=== PATIENT | female | born 1980 | race African-American/Black ===

== ENCOUNTER 2017-04-12 17:35 | Emergency (ER) | payer OTHER ==
--- NOTE | 2017-04-12 17:40 | PDOC ---
Rapid Medical Evaluation Chief Complaint: Pain, Acute Time Seen by Provider: 04/12/17 17:37 Medical Evaluation: 04/12/17 17:38 I have performed a brief in-person evaluation of this patient. The patient presents with a chief complaint of:lower abd pain, constipated one week. Pt states 8 weeks no vaginal bleeding Pertinent physical exam findings:suprapubic tenderness I have ordered the following:UA, urine The patient will proceed to the ED for further evaluation. 04/12/17 17:39
[2017-04-12 17:41] VITALS: BMI 19.3
[2017-04-12 18:36] LABS: URINE APPEARANCE SLCLOUDY; URINE BILIRUBIN NEGATIVE (NEGATIVE); URINE BLOOD NEGATIVE (NEGATIVE); URINE COLOR LTYELLOW; URINE GLUCOSE (UA) NEGATIVE (NEGATIVE); URINE KETONE NEGATIVE (NEGATIVE); URINE LEUK ESTERASE NEGATIVE (NEGATIVE); URINE NITRITE NEGATIVE (NEGATIVE); URINE PROTEIN NEGATIVE (NEGATIVE); URINE UROBILINOGEN NEGATIVE E.U./dl (0.2-1.0)
[2017-04-12] MEDS ORDERED: METOCLOPRAMIDE HCL INJECTION 10 MG/2 ML VIAL IVPB ONE (20:00)
[2017-04-12] MEDS ORDERED: METOCLOPRAMIDE HCL INJECTION 10 MG/2 ML VIAL ONE (20:09)
[2017-04-12 20:14] LABS: MCH 28.7 pg (25.7-33.7); MCHC 32.5 g/dl (32.0-36.0); MEAN CELL VOLUME 88.4 fl (80-96); MEAN PLT VOLUME 7.8 fl (7.5-11.1); PLATELET COUNT 315 K/MM3 (134-434); RDW 13.1 % (11.6-15.6); WHITE BLOOD COUNT 9.5 K/mm3 (4.0-10.0)
[2017-04-12 20:40] LABS: ALBUMIN 3.9 g/dl (3.4-5.0); ANION GAP 8 (8-16); CALCIUM 9.5 mg/dL (8.5-10.1); CO2 27 mmol/L (21-32); COCKROFT - GAULT 125.8595; CREATININE 0.5 mg/dL (0.55-1.02); GLUCOSE,RANDOM 80 mg/dL (74-106); SGOT/AST 11 U/L (15-37); SGPT/ALT 23 U/L (12-78)
[2017-04-12 20:42] LABS: ALK PHOS 59 U/L (45-117); BILIRUBIN,TOTAL 0.4 mg/dL (0.2-1.0); TOT PROT 7.1 g/dl (6.4-8.2)
--- NOTE | 2017-04-12 21:10 | PDOC ---
*Physical Exam - Vital Signs Last Vital Signs Temp Pulse Resp BP Pulse Ox 98.2 F 77 18 119/83 100 04/12/17 17:38 04/12/17 17:38 04/12/17 17:38 04/12/17 17:38 04/12/17 17:38 ED Treatment Course - LABORATORY CBC & Chemistry Diagram: 04/12/17 19:59 04/12/17 20:04 - ADDITIONAL ORDERS Additional order review: Laboratory Results 04/12/17 18:00 Urine Color Ltyellow Urine Appearance Slcloudy Urine pH 7.0 Urine Protein Negative Urine Glucose (UA) Negative Urine Ketones Negative Urine Blood Negative Urine Nitrite Negative Urine Bilirubin Negative Urine Urobilinogen Negative Ur Leukocyte Esterase Negative Urine HCG, Qual Positive - Medications Given in the ED: ED Medications Discontinued Medications Generic Name Dose Route Start Last Admin Trade Name Freq PRN Reason Stop Dose Admin Metoclopramide HCl 10 mg 04/12/17 20:00 04/12/17 20:21 Reglan Injection - IVPB 04/12/17 20:01 10 mg ONCE ONE Administration Medical Decision Making - Medical Decision Making 04/12/17 21:09 Pt seen by the Advanced Practice Provider under my direct supervision Ancillary studies reviewed I agree with plan as outlined by the Advanced Practice Provider LOU De La Cruz
--- NOTE | 2017-04-12 23:14 | PDOC ---
History of Present Illness - General Chief Complaint: Pain Stated Complaint: ABDOMINAL PAIN/8 WKS Time Seen by Provider: 04/12/17 17:37 History Source: Patient Exam Limitations: No Limitations - History of Present Illness Initial Comments: 04/12/17 23:08 36yo Female patient w/ PmHx: G6PD , 8 weeks presents to ED c/o abdominal pain. Patient report symptoms have been ongoing x 1 week. She reports last BM: Wednesday, but small. Patient states she visited with her POND SCALER and was prescribed colace but feels it is not working. She denies n/v/d outside of symptoms, vaginal bleeding, fever, back pain, diff breathing, or any other complaints at this time. Timing/Duration: 1 week Severity: mild Modifying Factors: improves with: medication Associated Symptoms: denies: denies symptoms, chest pain, cough, diaphoresis, fever/chills, headaches, loss of appetite, malaise, nausea/vomiting, rash, seizure, shortness of breath, syncope, weakness, other Past History - Travel Traveled outside of the country in the last 30 days: No Close contact w/someone who was outside of country & ill: No - Past Medical History Allergies/Adverse Reactions: Allergies Allergy/AdvReac Type Severity Reaction Status Date / Time aspirin Allergy Verified 04/12/17 17:37 iron Allergy Verified 04/12/17 17:37 orange Allergy Verified 04/12/17 17:37 Home Medications: Ambulatory Orders Albuterol 0.083% Nebulizer Malika [Ventolin 0.083% Nebulizer Soln -] 1 unit IH PRN 04/12/17 Polyethylene Glycol 3350 [Miralax (For Bowel Prep) -] 17 gm PO DAILY #1 bottle 04/12/17 Asthma: Yes GI Disorders: Yes (gallstones) Other medical history: g6pd defic - Psycho/Social/Smoking Cessation Hx Anxiety: No Suicidal Ideation: No Smoking History: Never smoked Have you smoked in the past 12 months: No Information on smoking cessation initiated: No Hx Alcohol Use: No Drug/Substance Use Hx: No Substance Use Type: None Review of Systems - Review of Systems Able to Perform ROS?: Yes Is the patient limited Frisian proficient: No Constitutional: No: Chills, Fever Respiratory: No: Shortness of Breath, Wheezing Cardiac (ROS): No: Chest Pain, Lightheadedness, Palpitations, Chest Tightness ABD/GI: Yes: Constipated, Abdominal cramping (Generalized), Other (8 Weeks .). No: Diarrhea, Nausea, Poor Appetite, Poor Fluid Intake, Vomiting : No: Burning, Dysuria, Hematuria Musculoskeletal: No: Back Pain Integumentary: No: Bruising, Rash Neurological: No: Headache, Seizure, Ataxia, Dizziness All Other Systems: Reviewed and Negative *Physical Exam - Vital Signs Last Vital Signs Temp Pulse Resp BP Pulse Ox 98.2 F 77 18 119/83 100 04/12/17 17:38 04/12/17 17:38 04/12/17 17:38 04/12/17 17:38 04/12/17 17:38 - Physical Exam General Appearance: Yes: Nourished, Appropriately Dressed. No: Apparent Distress, Mild Distress, Moderate Distress, Severe Distress Neck: positive: Trachea midline, Supple. negative: Stridor, Lymphadenopathy (R) , Lymphadenopathy (L) Respiratory/Chest: positive: Lungs Clear, Normal Breath Sounds. negative: Chest Tender, Respiratory Distress, Accessory Muscle Use, Labored Respiration, Rapid RR, Stridor, Wheezing Cardiovascular: positive: Regular Rhythm, Regular Rate Gastrointestinal/Abdominal: positive: Normal Bowel Sounds, Soft, Protuberent (8 weeks ). negative: Distended, Guarding, Rebound, Tenderness Musculoskeletal: positive: Normal Inspection. negative: CVA Tenderness Extremity: positive: Normal Capillary Refill, Normal Inspection, Normal Range of Motion. negative: Pedal Edema, Swelling, Calf Tenderness, Erythema, Inflammation Integumentary: positive: Normal Color, Dry, Warm Neurologic: positive: relay adjuster II-XII NML intact, Fully Oriented, Alert, Normal Mood/ Affect, Normal Response, Motor Strength 5/5 ED Treatment Course - LABORATORY CBC & Chemistry Diagram: 04/12/17 19:59 04/12/17 20:04 - ADDITIONAL ORDERS Additional order review: Laboratory Results 04/12/17 04/12/17 04/12/17 20:04 20:04 19:59 Sodium 137 Potassium 4.4 Chloride 102 Carbon Dioxide 27 Anion Gap 8 BUN 9 Creatinine 0.5 L Creat Clearance w eGFR > 60 Random Glucose 80 Calcium 9.5 Total Bilirubin 0.4 AST 11 L ALT 23 Alkaline Phosphatase 59 Total Protein 7.1 Albumin 3.9 Beta HCG, Quant 101143.6 Urine Color Urine Appearance Urine pH Urine Protein Urine Glucose (UA) Urine Ketones Urine Blood Urine Nitrite Urine Bilirubin Urine Urobilinogen Ur Leukocyte Esterase Urine HCG, Qual Blood Type O POSITIVE Antibody Screen Negative 04/12/17 18:00 Sodium Potassium Chloride Carbon Dioxide Anion Gap BUN Creatinine Creat Clearance w eGFR Random Glucose Calcium Total Bilirubin AST ALT Alkaline Phosphatase Total Protein Albumin Beta HCG, Quant Urine Color Ltyellow Urine Appearance Slcloudy Urine pH 7.0 Urine Protein Negative Urine Glucose (UA) Negative Urine Ketones Negative Urine Blood Negative Urine Nitrite Negative Urine Bilirubin Negative Urine Urobilinogen Negative Ur Leukocyte Esterase Negative Urine HCG, Qual Positive Blood Type Antibody Screen 04/12/17 19:59 RBC 3.91 MCV 88.4 MCHC 32.5 RDW 13.1 MPV 7.8 - RADIOLOGY Radiology Studies Ordered: Category Date Time Status <14WKS US [US] Stat Ultrasound 04/12/17 19:44 Taken - Medications Given in the ED: ED Medications Discontinued Medications Generic Name Dose Route Start Last Admin Trade Name Piyush PRN Reason Stop Dose Admin Metoclopramide HCl 10 mg 04/12/17 20:00 04/12/17 20:21 Reglan Injection - IVPB 04/12/17 20:01 10 mg ONCE ONE Administration *DC/Admit/Observation/Transfer Diagnosis at time of Disposition: Constipation Qualifiers: Constipation type: other constipation type Qualified Code(s): K59.09 - Other constipation - Discharge Dispostion Disposition: HOME Condition at time of disposition: Improved Admit: No - Prescriptions Prescriptions: Polyethylene Glycol 3350 [Miralax (For Bowel Prep) -] 17 gm PO DAILY #1 bottle - Patient Instructions Printed Discharge Instructions: DI for Constipation, Increased Dietary Fiber May Improve Constipation Conditions With Pelvic Terrence Additional Instructions: FOLLOW UP WITH YOUR POND SCALER THIS WEEK FOR FURTHER EVALUATION. TAKE MEDICATION PRESCRIBED. INCREASE YOUR FLUID INTAKE AND DAILY CALORIES. RETURN IF SYMPTOMS WORSEN OR ANY CONCERNS FOR FURTHER EVALUATION. Print Language: SERBIAN - Post Discharge Activity Work/School Note: Back to Work
[2017-04-12 23:47] VITALS: BP 113/62; PULSE 70; TEMP 98.4
== END 2017-04-12 23:49 | disposition home or self-care (01) ==
LOC: JER 17:35
PROC: 3E033GC Introduction of Other Therapeutic Substance into Peripheral Vein, Percutaneous Approach (ICD-10-PCS; principal; 2017-04-12)
DX: O26.891 Other specified pregnancy related conditions, first trimester (principal); K59.09 Other constipation; Z3A.01 Less than 8 weeks gestation of pregnancy
CPT/HCPCS: 36415; 76801-TC; 80053; 81003; 84702; 84703; 85027; 86850; 86900; 86901; 96374; 99284-25

== ENCOUNTER 2017-09-21 18:03 | Emergency (ER) | payer OTHER ==
[2017-09-21 18:27] VITALS: BMI 26.1
--- NOTE | 2017-09-21 18:30 | PDOC ---
Rapid Medical Evaluation Chief Complaint: Headache Time Seen by Provider: 09/21/17 18:22 Medical Evaluation: Allergies Allergy/AdvReac Type Severity Reaction Status Date / Time aspirin Allergy Verified 09/21/17 18:23 iron Allergy Verified 09/21/17 18:23 orange Allergy Verified 09/21/17 18:23 Vital Signs Temp Pulse Resp BP Pulse Ox 98.3 F 74 16 122/70 99 09/21/17 18:24 09/21/17 18:24 09/21/17 18:24 09/21/17 18:24 09/21/17 18:24 09/21/17 18:28 I have performed a brief in-person evaluation of this patient. The patient presents with a chief complaint of: lower abd pain and headache, 31 weeks , hx SCD Pertinent physical exam findings: vss. I have ordered the following: cbc, comp., ua, ucx, tylenol, ivf The patient will proceed to the ED for further evaluation.
[2017-09-21] MEDS ORDERED: ACETAMINOPHEN 500 MG TABLET (FP) PO ONE (18:31)
[2017-09-21] MEDS ORDERED: SODIUM CHLORIDE 1,000 ML IV STA (18:31)
[2017-09-21 18:47] LABS: BASOPHIL 0.4 % (0-2.0); EOSINOPHIL 1.2 % (0-4.5); MCH 28.7 pg (25.7-33.7); MCHC 32.7 g/dl (32.0-36.0); MEAN CELL VOLUME 87.9 fl (80-96); MEAN PLT VOLUME 7.6 fl (7.5-11.1); NEUTROPHILS 80.4 % (42.8-82.8); PLATELET COUNT 352 K/MM3 (134-434); RDW 13.9 % (11.6-15.6); WHITE BLOOD COUNT 11.8 K/mm3 (4.0-10.0)
[2017-09-21 18:48] LABS: URINE APPEARANCE CLOUDY; URINE BILIRUBIN NEGATIVE (NEGATIVE); URINE BLOOD NEGATIVE (NEGATIVE); URINE COLOR YELLOW; URINE GLUCOSE (UA) NEGATIVE (NEGATIVE); URINE KETONE NEGATIVE (NEGATIVE); URINE NITRITE NEGATIVE (NEGATIVE); URINE PROTEIN NEGATIVE (NEGATIVE); URINE UROBILINOGEN NEGATIVE mg/dL (0.2-1.0)
[2017-09-21] MEDS ORDERED: ACETAMINOPHEN 325 MG TABLET (FP) ONE (19:08)
[2017-09-21 19:24] LABS: ALBUMIN 2.7 g/dl (3.4-5.0); ALK PHOS 113 U/L (45-117); ANION GAP 8 (8-16); BILIRUBIN,TOTAL 0.2 mg/dL (0.2-1.0); CALCIUM 8.5 mg/dL (8.5-10.1); CO2 24 mmol/L (21-32); CREATININE 0.5 mg/dL (0.55-1.02); GLUCOSE,RANDOM 80 mg/dL (74-106); SGOT/AST 15 U/L (15-37); SGPT/ALT 34 U/L (12-78); TOT PROT 6.3 g/dl (6.4-8.2)
--- NOTE | 2017-09-21 20:25 | PDOC ---
History of Present Illness - General Chief Complaint: Headache Stated Complaint: HEADACHE Time Seen by Provider: 09/21/17 18:22 - History of Present Illness Initial Comments: 09/21/17 20:17 Past History - Past History Allergies/Adverse Reactions: Allergies aspirin Allergy (Verified 09/21/17 18:23) iron Allergy (Verified 09/21/17 18:23) orange Allergy (Verified 09/21/17 18:23) Home Medications: Ambulatory Orders Albuterol 0.083% Nebulizer Malika [Ventolin 0.083% Nebulizer Soln -] 1 unit IH PRN 04/12/17 Polyethylene Glycol 3350 [Miralax (For Bowel Prep) -] 17 gm PO DAILY #1 bottle 04/12/17 Immunization Status Up to Date: Yes Tetanus Status: Unknown - Social History Smoking Status: Never smoked *Physical Exam - Vital Signs Last Vital Signs Temp Pulse Resp BP Pulse Ox 98.3 F 74 16 122/70 99 09/21/17 18:24 09/21/17 18:24 09/21/17 18:24 09/21/17 18:24 09/21/17 18:24 ED Treatment Course - LABORATORY CBC & Chemistry Diagram: 09/21/17 18:40 09/21/17 18:40 - ADDITIONAL ORDERS Additional order review: Laboratory Results 09/21/17 18:40 Urine Color Yellow Urine Appearance Cloudy Urine pH 7.0 Ur Specific [place] 1.014 Urine Protein Negative Urine Glucose (UA) Negative Urine Ketones Negative Urine Blood Negative Urine Nitrite Negative Urine Bilirubin Negative Urine Urobilinogen Negative 09/21/17 18:40 RBC 3.42 L MCV 87.9 MCHC 32.7 RDW 13.9 MPV 7.6 Neutrophils % 80.4 Lymphocytes % 10.5 Monocytes % 7.5 Eosinophils % 1.2 Basophils % 0.4
--- NOTE | 2017-09-21 20:53 | PDOC ---
History of Present Illness - General Chief Complaint: Headache Stated Complaint: HEADACHE Time Seen by Provider: 09/21/17 18:22 - History of Present Illness Initial Comments: 09/21/17 20:52 CHIEF COMPLAINT: headache in HISTORY OF PRESENT ILLNESS: 37 yo F 31 wk with hx of sickle cell anemia, G6PD deficiency, fibroids, and asthma presents to ED with headache x 3 days with left sided blurry vision. Patient reports that she was recently transferred from her OBGYN to [facility] for high risk . Patient also reports feeling "like something wants to come out for the past month" but reports that she was placed on bedrest per OB "since February." PAST MEDICAL HISTORY: as per HPI FAMILY HISTORY: Denies SOCIAL HISTORY: Denies tobacco, alcohol, illicit drug use. SURGICAL HISTORY: Denies ALLERGIES: aspirin, iron, orange REVIEW OF SYSTEMS General/Constitutional: Denies fever or chills. Denies weakness, weight change. HEENT: Blurry vision to L eye. Denies ear pain or discharge. Denies sore throat. Cardiovascular: Denies chest pain or shortness of breath. Respiratory: Denies cough, wheezing, or hemoptysis. Gastrointestinal: Denies nausea, vomiting, diarrhea or constipation. Denies rectal bleeding. Genitourinary: Denies dysuria, frequency, or change in urination. Musculoskeletal: Denies joint or muscle swelling or pain. Denies neck or back pain. Skin and breasts: Denies rash or easy bruising. Neurologic: Headache x 3 days. Denies vertigo, loss of consciousness, or loss of sensation. PHYSICAL EXAM General Appearance: Well-appearing, appropriately dressed. No apparent distress. HEENT: EOMI, PERRLA, normal ENT inspection, normal voice, TMs normal, pharynx normal. No conjunctival pallor. No photophobia, scleral icterus. Neck: Supple. Trachea midline. No tenderness, rigidity, carotid bruit, stridor , lymphadenopathy, or thyromegaly. Respiratory/Chest: Lungs CTAB. No shortness of breath, chest tenderness, respiratory distress, accessory muscle use. No crackles, rales, rhonchi, stridor , wheezing, dullness Cardiovascular: RRR. S1, S2. No JVD, murmur, bradycardia, tachycardia. Vascular Pulses: Dorsalis-Pedis (R): 2+, Dorsalis-Pedis (L): 2+ Gastrointestinal/Abdominal: Normal bowel sounds. Abdomen soft, non-distended. No tenderness or rebound tenderness. No organomegaly, pulsatile mass, guarding , hernia, hepatomegaly, splenomegaly. Lymphatic: No adenopathy, tenderness. Musculoskeletal/Extremities: Normal inspection. FROM of all extremities, normal capillary refill. Pelvis Stable. No CVA tenderness. No tenderness to extremities, pedal edema, swelling, erythema or deformity. Integumentary: Appropriate color, dry, warm. No cyanosis, erythema, jaundice or rash Neurologic: it telecom technician II-XII intact. Fully oriented, alert. Appropriate mood/affect. Motor strength 5/5. No appreciable EOM palsy, facial droop or sensory deficit. Past History - Past Medical History Allergies/Adverse Reactions: Allergies Allergy/AdvReac Type Severity Reaction Status Date / Time aspirin Allergy Verified 09/21/17 18:23 iron Allergy Verified 09/21/17 18:23 orange Allergy Verified 09/21/17 18:23 Home Medications: Ambulatory Orders Multivit,Calc,Mins/Iron/Folic [Therapeutic-M Tablet] 1 each PO DAILY 09/21/17 Asthma: Yes CVA: No COPD: No GI Disorders: Yes (gallstones) Other medical history: FIBROIDS - Immunization History Immunization Up to Date: Yes - Suicide/Smoking/Psychosocial Hx Smoking History: Never smoked Have you smoked in the past 12 months: No Information on smoking cessation initiated: No Hx Alcohol Use: No Drug/Substance Use Hx: No Substance Use Type: None *Physical Exam - Vital Signs Last Vital Signs Temp Pulse Resp BP Pulse Ox 98.3 F 74 16 122/70 99 09/21/17 18:24 09/21/17 18:24 09/21/17 18:24 09/21/17 18:24 09/21/17 18:24 ED Treatment Course - LABORATORY CBC & Chemistry Diagram: 09/21/17 18:40 09/21/17 18:40 - ADDITIONAL ORDERS Additional order review: Laboratory Results 09/21/17 09/21/17 18:40 18:40 Sodium 138 Potassium 3.7 Chloride 106 Carbon Dioxide 24 Anion Gap 8 BUN 7 D Creatinine 0.5 L Creat Clearance w eGFR > 60 Random Glucose 80 Calcium 8.5 Total Bilirubin 0.2 D AST 15 D ALT 34 D Alkaline Phosphatase 113 D Total Protein 6.3 L Albumin 2.7 L D Lipase 169 Urine Color Yellow Urine Appearance Cloudy Urine pH 7.0 Ur Specific [place] 1.014 Urine Protein Negative Urine Glucose (UA) Negative Urine Ketones Negative Urine Blood Negative Urine Nitrite Negative Urine Bilirubin Negative Urine Urobilinogen Negative 09/21/17 18:40 RBC 3.42 L MCV 87.9 MCHC 32.7 RDW 13.9 MPV 7.6 Neutrophils % 80.4 Lymphocytes % 10.5 Monocytes % 7.5 Eosinophils % 1.2 Basophils % 0.4 Medical Decision Making - Medical Decision Making 09/21/17 20:52 37 yo F 31 wk with hx of sickle cell anemia, G6PD deficiency, fibroids, and asthma presents to ED with headache x 3 days with left sided blurry vision. -VSS, no elevated BP -CBC, CMP, UA, UCx, Upreg -IVF, Tylenol -TV US 09/21/17 22:49 Labs unremarkable. Patient reassessed after administration of medications. Patient reports that headache has resolved and even vision seems better now that the pain has gone away. Patient is to be sent to L&D for further evaluation. *DC/Admit/Observation/Transfer Diagnosis at time of Disposition: Headache Qualifiers: Headache type: unspecified Headache chronicity pattern: unspecified pattern Intractability: not intractable Qualified Code(s): R51 - Headache - Referrals - Patient Instructions - Post Discharge Activity
[2017-09-21] MEDS ORDERED: ACETAMINOPHEN 1000 MG/100 ML VIAL (NON FORMULARY) IVPB ONE (21:06)
[2017-09-21] MEDS ORDERED: ACETAMINOPHEN INJECTION 100 ML IVPB ONE (21:11)
[2017-09-21 21:37] LABS: URINE LEUK ESTERASE Negative (NEGATIVE)
[2017-09-22 02:30] VITALS: PULSE 80; TEMP 97.6
[2017-09-22 02:32] VITALS: BP 121/78
== END 2017-09-22 02:25 | disposition home or self-care (01) ==
LOC: JER 18:03
PROC: 3E0337Z Introduction of Electrolytic and Water Balance Substance into Peripheral Vein, Percutaneous Approach (ICD-10-PCS; principal; 2017-09-21)
PROC: 3E033NZ Introduction of Analgesics, Hypnotics, Sedatives into Peripheral Vein, Percutaneous Approach (ICD-10-PCS; 2017-09-21)
DX: O26.893 Other specified pregnancy related conditions, third trimester (principal); R51 Headache; O34.13 Maternal care for benign tumor of corpus uteri, third trimester; D25.9 Leiomyoma of uterus, unspecified; O99.013 Anemia complicating pregnancy, third trimester; D57.1 Sickle-cell disease without crisis; Z3A.31 31 weeks gestation of pregnancy
CPT/HCPCS: 36415; 76801-TC; 80053; 81003; 83690; 85025; 87086; 96361; 96374; 99282-25

== ENCOUNTER 2020-08-22 13:25 | Emergency (ER) | payer OTHER ==
[2020-08-22] MEDS ORDERED: ONDANSETRON 4 MG/2 ML VIAL IVPUSH ONE (13:28)
[2020-08-22] MEDS ORDERED: morphine CARPU-JECT 4 MG/1 ML DISP.SYRIN IVPUSH ONE (13:28)
[2020-08-22] MEDS ORDERED: SODIUM CHLORIDE 1,000 ML IV STA (13:28)
[2020-08-22 13:30] VITALS: BMI 20.5
--- NOTE | 2020-08-22 13:53 | PDOC ---
History of Present Illness - General Chief Complaint: Pain, Acute Stated Complaint: EXTREME ABD PAIN Time Seen by Provider: 08/22/20 13:28 History Source: Patient Exam Limitations: No Limitations - History of Present Illness Travel History: No Initial Comments: 08/22/20 13:45 HISTORY OF PRESENT ILLNESS: 39-year-old woman who denies medical history [facility] emergency [facility] for evaluation of right lower quadrant pain over the past 3 days. Patient still rates the pain 8/10 and reports the pain started below her umbilicus 3 days ago and now has migrated to the right lower quadrant. She is unable to describe the pain other than it "hurts a lot." Patient states she was seen at an urgent care center and told she does not have urinary infection was recommended she come to the emergency department for evaluation of her pain. Patient denies any nausea, vomiting, dysuria, hematuria, rectal bleeding, vaginal bleeding or vaginal discharge. Patient reports she is not having any intercourse for the past 6 months. She denies fevers, chills. No recent travel or sick contacts. PAST MEDICAL HISTORY: Denies past medical history SURGICAL HISTORY: Denies ALLERGIES: Aspirin, iron, oranges REVIEW OF SYSTEMS General/Constitutional: Denies fever or chills. Denies weakness, weight change. HEENT: Denies change in vision. Denies ear pain or discharge. Denies sore throat. Cardiovascular: Denies chest pain or shortness of breath. Respiratory: Denies cough, wheezing, or hemoptysis. Gastrointestinal: See HPI Genitourinary: Denies dysuria, frequency, or change in urination. Musculoskeletal: Denies joint or muscle swelling or pain. Denies neck or back pain. Skin and breasts: Denies rash or easy bruising. Neurologic: Denies headache, vertigo, loss of consciousness, or loss of sensation. Psychiatric: Denies depression or anxiety. Endocrine: Denies increased thirst. Denies abnormal weight change. Hematologic/Lymphatic: Denies anemia, easy bleeding, or history of blood clots. Allergic/Immunologic: Denies hives or skin allergy. Denies latex allergy. PHYSICAL EXAM General Appearance: Well-appearing, appropriately dressed. No apparent distr ess, no intoxication. Respiratory/Chest: Lungs CTAB. No shortness of breath, chest tenderness, resp iratory distress, accessory muscle use. No crackles, rales, rhonchi, stridor, wheezing, dullness Cardiovascular: RRR. S1, S2. No JVD, murmur, bradycardia, tachycardia. Vascular Pulses: Dorsalis-Pedis (R): 2+, Dorsalis-Pedis (L): 2+ Gastrointestinal/Abdominal: Normal bowel sounds. Abdomen soft, non-distended. Right lower quadrant tenderness without rebound tenderness. Negative psoas, obturator and Rovsing signs. No organomegaly, pulsatile mass, hernia, hepatomegaly, splenomegaly. Past History - Medical History Allergies/Adverse Reactions: Allergies Allergy/AdvReac Type Severity Reaction Status Date / Time aspirin Allergy Verified 08/22/20 13:27 iron Allergy Verified 08/22/20 13: orange Allergy Verified 08/22/20 13:27 Home Medications: Ambulatory Orders Folic Acid 1 mg PO DAILY 09/22/17 Asthma: Yes CVA: No COPD: No GI Disorders: Yes (gallstones) - Reproductive History Is Patient Now?: No - Immunization History Immunization Up to Date: Yes - Psycho-Social/Smoking History Smoking History: Never smoked Have you smoked in the past 12 months: No - Substance Abuse Hx (Audit-C & DAST Scrn) How often the patient has a drink containing alcohol: Never Score: In Men: 4 or > Positive; In Women: 3 or > Positive: 0 Screen Result (Pos requires Nsg. Audit-10AR): Negative *Physical Exam - Vital Signs Last Vital Signs Temp Pulse Resp BP Pulse Ox 98.6 F 70 18 131/66 99 08/22/20 13:28 08/22/20 13:28 08/22/20 13:28 08/22/20 13:28 08/22/20 13:28 ED Treatment Course - LABORATORY CBC & Chemistry Diagram: 08/22/20 14:40 08/22/20 14:40 - RADIOLOGY Radiology Studies Ordered: Category Date Time Status ABDOMEN & PELVIS CT WITH CONTR [CT] Stat CT Scan 08/22/20 13:28 Ordered Medical Decision Making - Medical Decision Making 08/22/20 13:49 A/P: 39-year-old female with right lower quadrant pain for 3 days which initially started below the umbilicus and now with migration to the right lower quadrant Physical exam concerning for appendicitis. Differential diagnosis includes but is not limited to-colitis, obstruction, perforation, gas, UTI, constipation Labs including lipase Urinalysis, urine , urine culture, urine GC CT of the abdomen and pelvis with IV contrast Normal saline 1 L IV bolus Morphine 4 mg IV Zofran 4 mg IV Reassess 08/22/20 17:16 Case has been discussed with Dr. Dow of radiology who states patient has multiple findings on her CT including bilateral renal calculi which are nonobstructing the largest being 0.3 cm, fatty liver with a 2.3 cm attenuation present likely a hemangioma, right corpus luteum cyst, pulmonary nodule and debris in the endometrial canal. CT is negative for appendicitis. Transvaginal ultrasound. Reassess 08/22/20 20:24 Laboratory Tests 08/22/20 08/22/20 08/22/20 14:21 14:40 14:40 WBC 5.6 RBC 4.16 Hgb 12.1 Hct 36.9 D MCV 88.7 MCH 29.1 MCHC 32.7 RDW 13.1 Plt Count 265 D MPV 8.2 Absolute Neuts (auto) 2.6 Neutrophils % 46.9 D Lymphocytes % 40.6 H D Monocytes % 8.9 Eosinophils % 2.5 D Basophils % 1.1 Nucleated RBC % 0 Sodium 141 Potassium 5.4 H Chloride 111 H Carbon Dioxide 28 Anion Gap 2 L BUN 12.2 Creatinine 0.6 Est GFR (CKD-EPI)AfAm 133.07 Est GFR (CKD-EPI)NonAf 114.82 Random Glucose 82 Calcium 9.0 Total Bilirubin 0.5 AST 30 ALT 18 Alkaline Phosphatase 64 Total Protein 7.1 Albumin 3.8 Lipase 66 L Urine Color Yellow Urine Appearance Clear Urine pH 7.5 Ur Specific [place] 1.026 Urine Protein Negative Urine Glucose (UA) Negative Urine Ketones Trace H Urine Blood Negative Urine Nitrite Negative Urine Bilirubin Negative Urine Urobilinogen 2.0 H Ur Leukocyte Esterase Negative Urine HCG, Qual C. trachomatis (JOSE LUIS) N. gonorrhoeae (JOSE LUIS) 08/22/20 08/22/20 14:45 15:00 WBC RBC Hgb Hct MCV MCH MCHC RDW Plt Count MPV Absolute Neuts (auto) Neutrophils % Lymphocytes % Monocytes % Eosinophils % Basophils % Nucleated RBC % Sodium Potassium Chloride Carbon Dioxide Anion Gap BUN Creatinine Est GFR (CKD-EPI)AfAm Est GFR (CKD-EPI)NonAf Random Glucose Calcium Total Bilirubin AST ALT Alkaline Phosphatase Total Protein Albumin Lipase Urine Color Urine Appearance Urine pH Ur Specific [place] Urine Protein Urine Glucose (UA) Urine Ketones Urine Blood Urine Nitrite Urine Bilirubin Urine Urobilinogen Ur Leukocyte Esterase Urine HCG, Qual Negative C. trachomatis (JOSE LUIS) Pending N. gonorrhoeae (JOSE LUIS) Pending Transvaginal ultrasound as read by Dr. Zavaleta: A very small amount of complex fluid is seen within the endometrial canal possibly representing blood. Discharge home with GI, and PMD follow-up. I discussed the physical exam findings, ancillary test results and final diagnoses with the patient. I answered all of the patient's questions. The patient was satisfied with the care received and felt comfortable with the discharge plan and treatment plan. The patient will call their primary care physician within 24 hours to arrange follow-up and will return to the Emergency Department with any new, persistent or worsening symptoms. Portions of this note have been documented using voice recognition software. As a result, errors may occur in the quality control projectionist process. Effort has been made to correct all grammatical and quality control projectionist error, but some may have been missed which may produce sporadic inaccurate quality control projectionist or nonsensical phrases. Discharge - Discharge Information Problems reviewed: Yes Clinical Impression/Diagnosis: Renal calculus, bilateral, Corpus luteum cyst Condition: Stable Disposition: HOME - Admission No - Follow up/Referral Referrals: Darian Coleman [Primary Care Provider] - Wyatt Rodney MD [Staff Physician] - Giovanni Forman MD [Staff Physician] - - Patient Discharge Instructions Additional Instructions: You have a kidney stone on each side of your abdomen. It is important that you follow-up with the urologist for continued evaluation. As has been discussed you have a 2 cm finding in your liver which needs reeva luation. You have been given the name of the GI specialist for further evaluation and imaging. Additionally you have a nodule in the left lung which needs repeat evaluation. This is usually obtained with repeat imaging in 6 months. It is important that you follow-up with your primary doctor for continued evaluation of your symptoms. Take Tylenol or Motrin as needed for pain. Follow manufactures instructions for appropriate dosage. Return to the emergency department for any new or worsening symptoms. Thank you very much for choosing us to provide your emergent health care needs. - Post Discharge Activity
[2020-08-22] MEDS ORDERED: morphine SULFATE 4 MG/ML VIAL ONE (14:39)
--- OUTSIDE RECORDS SUMMARY | 2020-08-22 14:40 | XMS ---
:1980 Author Organization [facility] Support Name Relationship Address Phone UE Unavailable Unavailable Unavailable IVETTE VELAZQUEZ MOTHER [address] [place] [address] Roula Rodriguez Niece [address] [place], [place] [phone] [place] [address] ROULA RODRIGUEZ Sister [address] [phone] [place] [address] Re-disclosure Warning The records that you are about to access may contain information from federally- assisted alcohol or drug abuse programs. If such information is present, then the following federally mandated warning applies: This information has been disclosed to you from records protected by federal confidentiality rules (42 CFR part 2). The federal rules prohibit you from making any further disclosure of this information unless further disclosure is expressly permitted by the written consent of the person to whom it pertains or as otherwise permitted by 42 CFR part 2. A general authorization for the release of medical or other information is NOT sufficient for this purpose. The Federal rules restrict any use of the information to criminally investigate or prosecute any alcohol or drug abuse patient.The records that you are about to access may contain highly sensitive health information, the redisclosure of which is protected by Article 27-F of the [facility] Public Health law. If you continue you may haveaccess to information: Regarding HIV / AIDS; Provided by facilities licensed or operated by the [facility] Office of Mental Health; or Provided by the [facility] Office for People With Developmental Disabilities. If such information is present, then the following [facility] mandated warning applies: This information has been disclosed to you from confidential records which are protected by state law. State law prohibits you from making any further disclosure of this information without the specific written consent of the person to whom it pertains, or as otherwise permitted by law. Any unauthorized further disclosure in violation of state law may result in a fine or long-term sentence or both. A general authorization for the release of medical or other information is NOT sufficient authorization for further disclosure. Insurance Providers Payer name Policy type / Policy ID Covered Covered democrat's Policy Plan Coverage type democrat ID relationship to Zamudio Information zamudio ZACHARY [id number] SP [id number] HEALTH NON CAP [place] Care Individual 0 Self 0 [place] Policy [place] Care Individual 0 Self 0 [place] Policy Dental [id number] S [id number] Dentaquest [facility] [place] Vision [id number] S [id number] [facility] Medicaid [id number] S [id number] Regular Clinic Visit [place] [id number] S [id number] Family Planning MKD & EP 3 & 4 Only Dental [id number] S [id number] 100 [employer] [facility] [place] Vision [id number] S [id number] [facility] Zachary Care [id number] S [id number] [place] Care [id number] S [id number] [place]
[2020-08-22 14:51] LABS: BASO % 1.1 % (0-2.0); EOS % 2.5 % (0-4.5); HEMATOCRIT 36.9 % (32.4-45.2); HEMOGLOBIN 12.1 GM/dL (10.7-15.3); LYMPH % 40.6 % (8-40); MCH 29.1 pg (25.7-33.7); MCHC 32.7 g/dl (32.0-36.0); MEAN CELL VOLUME 88.7 fl (80-96); MEAN PLT VOLUME 8.2 fl (7.5-11.1); MONO % 8.9 % (3.8-10.2); NEUT % 46.9 % (42.8-82.8); PLATELET COUNT 265 K/MM3 (134-434); RBC 4.16 M/mm3 (3.60-5.2); RDW 13.1 % (11.6-15.6); WHITE BLOOD COUNT 5.6 K/mm3 (4.0-10.0)
[2020-08-22 15:08] LABS: ALBUMIN 3.8 g/dl (3.4-5.0); BILIRUBIN,TOTAL 0.5 mg/dL (0.2-1); BLOOD UREA NITROGEN 12.2 mg/dL (7-18); CREATININE 0.6 mg/dL (0.55-1.3); POTASSIUM 5.4 mmol/L (3.5-5.1); TOT PROT 7.1 g/dl (6.4-8.2)
[2020-08-22 16:28] LABS: PH,URINE 7.5 (5.0-8.0); URINE APPEARANCE CLEAR; URINE BILIRUBIN NEGATIVE (NEGATIVE); URINE COLOR YELLOW; URINE GLUCOSE (UA) NEGATIVE (NEGATIVE); URINE KETONE TRACE (NEGATIVE); URINE LEUK ESTERASE NEGATIVE (NEGATIVE); URINE NITRITE NEGATIVE (NEGATIVE); URINE PROTEIN NEGATIVE (NEGATIVE)
[2020-08-22 20:44] VITALS: BP 126/81; PULSE 76; TEMP 98.1
== END 2020-08-22 20:44 | disposition home or self-care (01) ==
LOC: JER 13:25
PROC: 3E033NZ Introduction of Analgesics, Hypnotics, Sedatives into Peripheral Vein, Percutaneous Approach (ICD-10-PCS; principal; 2020-08-22)
PROC: 3E033GC Introduction of Other Therapeutic Substance into Peripheral Vein, Percutaneous Approach (ICD-10-PCS; 2020-08-22)
PROC: 3E0337Z Introduction of Electrolytic and Water Balance Substance into Peripheral Vein, Percutaneous Approach (ICD-10-PCS; 2020-08-22)
DX: N20.0 Calculus of kidney (principal); N83.12 Corpus luteum cyst of left ovary
CPT/HCPCS: 36415; 74177-TC; 76830-TC; 80053; 81003; 83690; 84703; 85025; 87086; 87491; 87591; 99285-25; Q9967

== ENCOUNTER 2020-11-04 04:38 | Day surgery (SDC) | payer OTHER ==
[2020-10-30 10:19] VITALS: BMI 20.5
[2020-11-04] MEDS ORDERED: MIDAZOLAM HCL 2 MG/2 ML SINGLE DOSE VIAL ONE (09:40)
[2020-11-04] MEDS ORDERED: PROPOFOL 20 ML ONE (10:10)
[2020-11-04 10:27] VITALS: TEMP 97.1
[2020-11-04 12:57] VITALS: BP 138/78; PULSE 60
== END 2020-11-04 12:30 | disposition home or self-care (01) ==
LOC: JASU-SURG 04:38
PROVIDERS: ATTEND Urology
PROC: 0TF4XZZ Fragmentation in Left Kidney Pelvis, External Approach (ICD-10-PCS; principal; 2020-11-04 09:00)
DX: N20.0 Calculus of kidney (principal)
CPT/HCPCS: 81025

== ENCOUNTER 2020-12-02 04:31 | Day surgery (SDC) | payer OTHER ==
[2020-11-28 15:30] VITALS: BMI 20.9
[2020-12-02] MEDS ORDERED: PROPOFOL 20 ML ONE (14:18)
[2020-12-02] MEDS ORDERED: MIDAZOLAM HCL 2 MG/2 ML SINGLE DOSE VIAL ONE (14:19)
[2020-12-02] MEDS ORDERED: SCOPOLAMINE HYDROBROMIDE 1 PATCH PATCH.TD72 ONE (14:40)
[2020-12-02 17:00] VITALS: BP 131/77; PULSE 70; TEMP 98.4
== END 2020-12-02 17:10 | disposition home or self-care (01) ==
LOC: JASU-SURG 04:31
PROVIDERS: ATTEND Urology
PROC: 0TF3XZZ Fragmentation in Right Kidney Pelvis, External Approach (ICD-10-PCS; principal; 2020-12-02 13:00)
DX: N20.0 Calculus of kidney (principal)
CPT/HCPCS: 84703

== ENCOUNTER 2021-06-16 04:38 | Day surgery (SDC) | payer OTHER ==
[2021-06-12 15:52] VITALS: BMI 20.7
[2021-06-16] MEDS ORDERED: MIDAZOLAM HCL 2 MG/2 ML SINGLE DOSE VIAL ONE ×2 (17:33→17:54)
[2021-06-16] MEDS ORDERED: PROPOFOL 20 ML ONE ×2 (17:33→17:58)
[2021-06-16] MEDS ORDERED: ceFAZolin SODIUM 1 GM VIAL IVPB ONE (17:56)
[2021-06-16] MEDS ORDERED: DEXAMETHASONE SOD PHOSPHATE 4 MG/1 ML VIAL ONE (18:05)
[2021-06-16] MEDS ORDERED: GENTAMICIN SO4 80 MG/2 ML VIAL ONE (18:05)
[2021-06-16] MEDS ORDERED: GENTAMICIN SO4 80 MG/2 ML VIAL IVPB ONE (18:16)
[2021-06-16] MEDS ORDERED: ACETAMINOPHEN 325 MG TABLET (FP) PO ONE ×2 (19:00)
[2021-06-16] MEDS ORDERED: ACETAMINOPHEN 325 MG TABLET (FP) ONE (19:03)
[2021-06-16 19:17] VITALS: TEMP 97.7
[2021-06-16 19:57] VITALS: BP 121/72; PULSE 68
== END 2021-06-16 20:05 | disposition home or self-care (01) ==
LOC: JASU-SURG 04:38
PROVIDERS: ATTEND Urology
PROC: 0TF4XZZ Fragmentation in Left Kidney Pelvis, External Approach (ICD-10-PCS; principal; 2021-06-16 15:00)
DX: N20.0 Calculus of kidney (principal)
CPT/HCPCS: 81025

== ENCOUNTER 2023-04-19 04:05 | Day surgery (SDC) | payer OTHER ==
[2023-04-16 15:49] VITALS: BMI 20.9
[2023-04-19] MEDS ORDERED: MIDAZOLAM HCL 2 MG/2 ML SINGLE DOSE VIAL ONE (10:44)
[2023-04-19] MEDS ORDERED: PROPOFOL 40 ML ONE (10:44)
[2023-04-19] MEDS ORDERED: ONDANSETRON 4 MG/2 ML VIAL ONE (10:44)
[2023-04-19 14:14] VITALS: RESP 20; TEMP 98.5
[2023-04-19 14:17] VITALS: BP 134/74; PULSE 70
== END 2023-04-19 13:30 | disposition home or self-care (01) ==
LOC: JASU-SURG 04:05
PROVIDERS: ATTEND Urology
PROC: 0TC13ZZ Extirpation of Matter from Left Kidney, Percutaneous Approach (ICD-10-PCS; principal; 2023-04-19 10:30)
DX: N20.0 Calculus of kidney (principal)
CPT/HCPCS: 81025

== ENCOUNTER 2023-06-10 13:48 | Emergency (ER) | payer OTHER ==
[2023-06-10 14:08] VITALS: BP 121/74; PULSE 59; RESP 17; TEMP 98.5; BMI 20.9
== END 2023-06-10 16:51 | disposition home or self-care (01) ==
LOC: JERFT 13:48
DX: M54.2 Cervicalgia (principal); V89.2XXA Person injured in unspecified motor-vehicle accident, traffic, initial encounter; Y93.I9 Activity, other involving external motion; Y92.9 Unspecified place or not applicable
CPT/HCPCS: 72125-TC; 99284-25

== ENCOUNTER 2023-07-26 04:35 | Day surgery (SDC) | payer OTHER ==
[2023-07-22 14:33] VITALS: BMI 20.9
[2023-07-26 13:33] VITALS: RESP 20
[2023-07-26] MEDS ORDERED: MIDAZOLAM HCL 2 MG/2 ML SINGLE DOSE VIAL ONE ×2 (16:03→16:33)
[2023-07-26] MEDS ORDERED: PROPOFOL 20 ML ONE (16:36)
[2023-07-26 20:47] VITALS: TEMP 97.2
[2023-07-26 20:51] VITALS: BP 142/72; PULSE 67
== END 2023-07-26 17:45 | disposition home or self-care (01) ==
LOC: JASU-SURG 04:35
PROVIDERS: ATTEND Urology
PROC: 0TF3XZZ Fragmentation in Right Kidney Pelvis, External Approach (ICD-10-PCS; principal; 2023-07-26 15:00)
DX: N20.0 Calculus of kidney (principal)
CPT/HCPCS: 81025

== ENCOUNTER 2024-09-21 15:25 | Emergency (ER) | payer OTHER ==
[2024-09-21 15:32] VITALS: BP 118/87; PULSE 78; RESP 19; TEMP 99.1; BMI 20.5
[2024-09-21 16:50] LABS: BASO % 1.2 % (0-2.0); EOS % 3.3 % (0-4.5); HEMATOCRIT 37.3 % (32.4-45.2); HEMOGLOBIN 12.1 GM/dL (10.7-15.3); LYMPH % 43.5 % (8-40); MCH 28.8 pg (25.7-33.7); MCHC 32.6 g/dl (32.0-36.0); MEAN CELL VOLUME 88.4 fl (80-96); MONO % 9.2 % (3.8-10.2); NEUT % 42.8 % (42.8-82.8); PLATELET COUNT 307 10^3/uL (134-434); RBC 4.22 M/mm3 (3.60-5.2); RDW 13.3 % (11.6-15.6); WHITE BLOOD COUNT 5.5 K/mm3 (4.0-10.0)
[2024-09-21 17:14] LABS: CALCIUM 9.1 mg/dL (8.5-10.1)
[2024-09-21 17:15] LABS: ALBUMIN 3.5 g/dl (3.4-5.0); BLOOD UREA NITROGEN 12.1 mg/dL (7-18)
[2024-09-21 17:18] LABS: CREATININE 0.9 mg/dL (0.55-1.3)
[2024-09-21 17:19] LABS: BILIRUBIN,TOTAL 0.4 mg/dL (0.2-1); TOT PROT 6.6 g/dl (6.4-8.2)
[2024-09-21 18:01] LABS: HIV INTERPRETATION NEGATIVE (NEGATIVE)
== END 2024-09-21 18:09 | disposition home or self-care (01) ==
LOC: JER 15:25
DX: R07.81 Pleurodynia (principal)
CPT/HCPCS: 36415; 71046-TC-FY; 80053; 84484; 85025; 86803; 87389; 93005; 93010; 99285-25

== ENCOUNTER 2024-10-02 04:14 | Day surgery (SDC) | payer OTHER ==
[2024-09-29 15:04] VITALS: BMI 20.7
[2024-10-02] MEDS ORDERED: PROPOFOL 20 ML ONE (08:40)
[2024-10-02] MEDS ORDERED: MIDAZOLAM HCL 2 MG/2 ML SINGLE DOSE VIAL ONE (08:41)
[2024-10-02] MEDS ORDERED: GLYCOPYRROLATE 0.2 MG/1 ML VIAL ONE (08:51)
[2024-10-02] MEDS ORDERED: ATROPINE SO4 0.4 MG/1 ML VIAL ONE (08:51)
[2024-10-02 16:00] VITALS: BP 140/80; PULSE 60; RESP 20; TEMP 97.4
== END 2024-10-02 11:19 | disposition home or self-care (01) ==
LOC: JASU-SURG 04:14
PROVIDERS: ATTEND Urology
PROC: 0TF4XZZ Fragmentation in Left Kidney Pelvis, External Approach (ICD-10-PCS; principal; 2024-10-02 09:00)
DX: N20.0 Calculus of kidney (principal)
CPT/HCPCS: 81025